=== PATIENT | female | born 1935 | race Caucasian/White ===

== ENCOUNTER → 2023-08-06 09:56 | Outpatient (REF) | payer OTHER, SELFPAY | LOC: RAD 09:56 | PROVIDERS: ATTENDING PHYSICIAN Internal Medicine Endocrinology, Diabetes & Metabolism; FAMILY PHYSICIAN Nurse Practitioner Adult Health | DX: M85.89 Other specified disorders of bone density and structure, multiple sites (principal); Z78.0 Asymptomatic menopausal state; M81.0 Age-related osteoporosis without current pathological fracture | CPT/HCPCS: 77080 ==

== ENCOUNTER 2025-04-03 13:27 | Emergency (ER) | payer MEDICARE, SELFPAY ==
[2025-04-03 13:36] VITALS: BMI 27.4
[2025-04-03 13:42] LABS: Hematocrit 39.2 % (37.0-47.0); Hemoglobin 13.0 g/dL (12.0-16.0); Mean Corp Hgb Conc. 33.2 g/dL (33.0-37.0); Mean Corpuscular Volume 91.0 fL (81.0-99.0); Nucleated Red Blood Cells % 0 %; Platelet Count 305 10^3/uL (130-400); Red Cell Dist. Width 13.3 % (11.5-14.5)
[2025-04-03 14:00] VITALS: BP 146/57
[2025-04-03 14:06] LABS: Blood Urea Nitrogen 16 mg/dl (7-17); Calcium 9.3 mg/dl (8.4-10.2); Carbon Dioxide 29 mmol/L (22-30); Chloride 107 mmol/L (98-107); Estimated Creatinine Clearance 68 ml/min; Glucose 128 mg/dl (70-99); Sodium 140 mmol/L (135-145); eGFR > 60.00
--- NOTE | 2025-04-03 14:30 | ED.GENMED ---
History of Present Illness
General
Chief Complaint: Fall
Time Seen by Provider: 04/03/25 13:48
History of Present Illness
History of Present Illness:
89-year-old female presents to the emergency department for evaluation of left hip pain and general weakness. She states that while trying to get into her bed last night she slid down to the floor to get herself up. She states she rolled from
[id number] all night to continue to move. She reports left hip pain as this was the side she fell on. Denies head strike. She is not on blood thinners. Denies any other pain. Was noted to be incontinent of urine and stool on arrival of family
this morning
Review of Systems
Review of Systems
Allergies reviewed?: Yes
All Other Systems: ROS reviewed and negative except as documented in HPI and ROS
Phy Exam
Physical Exam
Physical Exam:
GEN: Well appearing, NAD, WDWN
HEENT: Oral mucosa moist, no scleral icterus
Cardiac: Regular rate
Lung: No respiratory distress, no tachypnea
MSK: No gross deformity or injuries. Tenderness to the lateral left hip, no obvious signs of trauma, no ecchymosis, no shortening or external rotation of the lower extremities. No midline CTL spine tenderness
Skin: Good color, no pallor or jaundice, no rashes
Neuro: AO x3, moves all extremities freely
Psych: Calm, cooperative
Course
Orders/Labs/Results
Orders:
Orders
04/03/25 13:32
Electrocardiogram (*1) Urgent
Reason for Study: Other
Other Reason for Exam: prolonged downtime on the ground following fall
04/03/25 13:33
EKG- Treatment ONCE
04/03/25 13:34
Basic Metabolic Panel Urgent
CPK [Creatine Phosphokinase] Urgent
Complete Blood Count/With Diff Urgent
04/03/25 13:35
Lactic Acid Urgent
04/03/25 14:30
CR Hip - LT w/wo Pel 2-3 Vw* Urgent
Comment:
Reason For Exam: L hip pain
Include a pelvis x-ray?: Yes
04/03/25 14:40
Urinalysis Reflex To Culture Urgent
Date Specimen was Collected: 04/03/25
Time Specimen was Collected: 14:31
Urine Microscopic Reflex Cult Urgent
Urine Culture Urgent
WALTER Source: U
Specimen Description:
Date Specimen was Collected: 04/03/25
Time Specimen was Collected: 14:31
Abnormal Lab Results
04/03/25 04/03/25
13:34 14:40
Absolute Neuts (auto) 7.2 H 10^3/uL
(1.4-6.5)
Glucose 128 H mg/dl
(70-99)
Urine Bacteria (Reflex) Moderate A
(Negative)
Urine Albumin (Reflex) 1+ A
(Neg - Trace)
04/03/25 13:34
04/03/25 13:34
Vital Signs
Initial and Last Documented VS:
Initial Vital Signs
Temp Pulse Resp Pulse Ox
98.5 F 80 22 98
04/03/25 13:30 04/03/25 13:30 04/03/25 13:30 04/03/25 13:30
Last Documented Vital Signs
Temp Pulse Resp BP Pulse Ox
98.7 F 74 18 144/66 95
04/03/25 15:53 04/03/25 15:53 04/03/25 15:53 04/03/25 15:53 04/03/25 15:53
MDM/Problems Addressed
MDM/Problems Addressed:
Patient's labs and urinalysis are negative, hip x-ray showed no evidence for fracture. Discharged in stable condition. Son will attempt to get a life alert for the patient
*Pulse Oximetry
SaO2: 98
Oxygen Mode of Delivery: Room air
Patient hypoxic: no
*Critical Care Note
Total Time (30-74mins, 75-104mins- exclusive of procedures): Not Applicable
ED Attending Note
-
Portions of this chart may have been created with voice recognition software.� Occasional wrong word or��sound alike� substitutions may have occurred due to the inherent limitations of voice recognition software.
Discharge Plan
Departure
Patient Disposition: Home (Routine Discharge)
Date of Disposition: 04/03/25
Time of Disposition: 15:53
Patient with high blood pressure during this ER visit?: No
Discharge Problem:
Fall, Ambulatory dysfunction
Instructions: Preventing falls in adults
Prescriptions:
No Action
simvastatin 10 MG tablet
10 mg PO Q48H
Patient Comments:
patient takes on odd numbered days of the month
lisinopril 10 MG tablet
10 mg PO DAILY
metformin 500 MG tablet extended release 24 hr
1,000 mg PO DAILY@1700
cetirizine 10 MG tablet
10 mg PO DAILY
omeprazole 40 MG capsule,delayed release(DR/EC)
40 mg PO MOWEFR
oxybutynin chloride 5 MG tablet
5 mg PO BID
[id number]-hdb-EJ-lycopen-lutein [Centrum Silver] 1 EACH tablet
1 ea PO DAILY
levothyroxine 137 MCG capsule
137 mcg PO DAILY AT 0700
denosumab [Prolia] 60 MG/ML syringe
60 mg SC [id number]
calcium carbonate-vitamin D3 1 EACH tablet
2 ea PO DAILY
levothyroxine 25 MCG tablet
137 mcg PO DAILY@0700 0RF
cefdinir 300 MG capsule
300 mg PO BID 7 Days Qty: 14 0RF
Referrals:
Mirlande Patel CRNP [Family Provider, General]
Interventions
Interventions:
*Risk Screen - Suicide Last Done: 04/03/25 13:29
*General Assessment Last Done: 04/03/25 13:29
*Neglect/Abuse Screening Last Done: 04/03/25 13:29
*ED COVID-19 Vaccine History Last Done: 04/03/25 14:46
*ED Influenza Vaccine History Last Done: 04/03/25 14:46
*Nursing Disposition Last Done: 04/03/25 16:21
ED-Musculoskeletal Assessment Last Done: 04/03/25 13:42
ED- Neurological Assessment Last Done: 04/03/25 13:42
ED-Skin Assessment Last Done: 04/03/25 13:42
Discharge Date and Time
Discharge Date/Time: 04/03/25 16:23
Print Language: SWEDISH
[2025-04-03 14:49] LABS: Urine Character Clear (Clear)
[2025-04-03 15:10] LABS: Urine Red Blood Cell 0-2 /HPF (0-2); Urine Squamous Cell 0-2 /LPF (Few); Urine White Cell 0-2 /HPF (0-5)
[2025-04-03 15:53] VITALS: BP 144/66
== END 2025-04-03 16:23 | disposition home or self-care (01) ==
LOC: EMR 13:27
PROVIDERS: Physician Assistant; EMERGENCY PHYSICIAN Emergency Medicine; FAMILY PHYSICIAN Nurse Practitioner Adult Health
DX: M25.552 Pain in left hip (principal); W19.XXXA Unspecified fall, initial encounter; R26.2 Difficulty in walking, not elsewhere classified; R53.1 Weakness
CPT/HCPCS: 99284; 73502; 80048; 81003; 81015; 82550; 83605; 85025; 87086; 93005